=== PATIENT | male | born 1965 | race African-American/Black ===

== ENCOUNTER 2018-02-19 11:36 | Inpatient (IN) | payer OTHER ==
[2018-02-19] MEDS ORDERED: NA CHLORIDE 0.9% 1,000 ML ONE (12:14)
[2018-02-19] MEDS ORDERED: DIAZEPAM 5 MG TABLET ONE (12:14)
[2018-02-19] MEDS ORDERED: CYCLOBENZAPRINE 10 MG TAB ONE (12:14)
[2018-02-19 12:27] LABS: Hematocrit 43.2 % (39.6-49.0); MCH 29.6 pg (27.0-35.0); MCV 84.5 fL (80-100); MPV 8.3 fL (7.6-11.3); RBC Red Blood Cell Count 5.11 M/uL (4.33-5.43)
[2018-02-19] MEDS ORDERED: TETANUS & DIPHTHERIA TOX,ADULT 0.5 ML VIAL ONE (13:01)
[2018-02-19 13:12] LABS: Albumin 4.2 g/dL (3.4-5.0); Bilirubin Total 0.6 mg/dL (0.2-1.0); Potassium 3.4 mmol/L (3.5-5.1); Protein, Total 8.4 g/dL (6.4-8.2)
--- NOTE | 2018-02-19 13:32 | ER ---
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 Patient reports cramping in both legs, but states that its much worse in his right leg. Patient states that he was unable to walk because the leg kept cramping and locking up on him. Denies weakness to legs. Transition of care: patient was not received from another setting of care. Onset of symptoms was February 19, 2018 at 10:30. Risk Assessment: Do you want to hurt yourself or someone else? Patient reports no desire to harm self or others. Initial Sepsis Screen: Does the patient meet any 2 criteria? HR > 90 bpm. No. Patient's initial sepsis screen is negative. Does the patient have a suspected source of infection?. Care prior to arrival: None. 11:39 Method Of Arrival: EMS: [facility] aj1 11:39 Acuity: ANN 3 aj1 Triage Assessment: 11:44 General: Appears in no apparent distress. uncomfortable, Behavior is calm, cooperative, aj1 appropriate for age. Pain: Complains of pain in right leg and left leg. Historical: - Allergies: 11:44 No Known Allergies; aj1 - Home Meds: 11:44 amlodipine 10 mg tab 1 tab once daily [Active]; triamterene-hydrochlorothiazid 75-50 mg aj1 Oral tab 1 tab once daily [Active]; rosuvastatin 20 mg oral tab 1 tab once daily [Active]; clonidine HCl 0.1 mg Oral tab 1 tab once daily [Active]; - PMHx: 11:44 Hypertension; Hyperlipidemia; aj1 - Immunization history:: Flu vaccine is not up to date. - Social history:: Smoking status: Patient/guardian denies using tobacco, Patient uses Patient/guardian denies using alcohol, street drugs, The patient lives with family. - Ebola Screening: : Patient denies travel to an Ebola-affected area in the 21 days before illness onset. - Family history:: not pertinent. Screenin:00 Abuse screen: Denies threats or abuse. Denies injuries from another. Nutritional aj1 screening: No deficits noted. Tuberculosis screening: No symptoms or risk factors identified. Fall Risk None identified. Assessment: 12:00 General: Appears in no apparent distress. uncomfortable, Behavior is calm, cooperative, aj1 appropriate for age. Pain: Complains of pain in right leg and left leg Pain does not radiate. Pain currently is 9 out of 10 on a pain scale. Quality of pain is described as crampy, Pain began 1 hour ago. Is continuous. Neuro: Level of Consciousness is awake, alert, obeys commands, Oriented to person, place, time, situation. Cardiovascular: Denies chest pain, shortness of breath, Rhythm is sinus tachycardia. Cardiovascular: Patient's skin is warm and dry. Respiratory: Airway is patent Respiratory effort is even, unlabored, Respiratory pattern is regular, symmetrical. GI: No signs and/or symptoms were reported involving the gastrointestinal system. : No signs and/or symptoms were reported regarding the genitourinary system. EENT: No signs and/or symptoms were reported regarding the EENT system. Derm: Skin is normal. Musculoskeletal: Range of motion: intact in all extremities. Injury Description: Abrasion sustained to right leg is bleeding. 13:02 Reassessment: Patient appears in no apparent distress at this time. No changes from aj1 previously documented assessment. Patient and/or family updated on plan of care and expected duration. Pain level reassessed. Patient is alert, oriented x 3, equal unlabored respirations, skin warm/dry/pink. 14:07 Reassessment: Patient appears in no apparent distress at this time. No changes from aj1 previously documented assessment. Patient and/or family updated on plan of care and expected duration. Pain level reassessed. Patient is alert, oriented x 3, equal unlabored respirations, skin warm/dry/pink. 15:05 Reassessment: Patient and/or family updated on plan of care and expected duration. Pain aj1 level reassessed. General: Appears in no apparent distress. comfortable, Behavior is calm, cooperative, appropriate for age. Neuro: Level of Consciousness is awake, alert, obeys commands, Oriented to person, place, time, situation. Cardiovascular: Patient's skin is warm and dry. Rhythm is sinus tachycardia. Respiratory: Airway is patent Respiratory effort is even, unlabored, Respiratory pattern is regular, symmetrical. Derm: Skin is pink, warm \T\ dry. normal. 16:07 Reassessment: Patient appears in no apparent distress at this time. No changes from aj1 previously documented assessment. Patient and/or family updated on plan of care and expected duration. Pain level reassessed. Patient is alert, oriented x 3, equal unlabored respirations, skin warm/dry/pink. 17:06 Reassessment: Patient appears in no apparent distress at this time. No changes from aj1 previously documented assessment. Patient and/or family updated on plan of care and expected duration. Pain level reassessed. Patient is alert, oriented x 3, equal unlabored respirations, skin warm/dry/pink. Vital Signs: 11:44 BP 175 / 106; Pulse 108; Resp 18; Temp 98.0; Pulse Ox 96% on R/A; Weight 126.55 kg; aj1 Height 5 ft. 11 in. (180.34 cm); Pain 9/10; 12:45 BP 134 / 96; Pulse 104; Resp 20; Pulse Ox 97% on R/A; aj1 14:07 BP 162 / 105; Pulse 102; Resp 20; Pulse Ox 97% on R/A; aj1 15:30 BP 165 / 94 RA Sitting (auto/lg); Pulse 102; Resp 17; Pulse Ox 96% on R/A; jp3 16:35 BP 160 / 95; Pulse 98; Resp 18; Pulse Ox 96% ; aj1 11:44 Body Mass Index 38.91 (126.55 kg, 180.34 cm) aj1 ED Course: 11:38 Patient arrived in ED. aj1 11:41 Triage completed. aj1 11:44 Arm band placed on Patient placed in an exam room. aj1 11:48 Louise Andersen MD is Attending Physician. ma2 12:00 No provider procedures requiring assistance completed. aj1 12:05 Anne Marie Laboy, RN is Primary Nurse. aj1 12:05 Placed in gown. Call light in reach. Side rails up X 1. Side rails up X2. Warm blanket jp3 given. 12:05 abstract searcher on. Pulse ox on. NIBP on. jp3 12:22 Maintain EMS IV. Dressing intact. Good blood return noted. Site clean \T\ dry. Gauge \T\ senia 3 site: 20-gauge in Left A/C. 12:22 Initial lab(s) drawn, by me, sent to lab. jp3 12:24 CK Sent. jp3 12:24 CMP Sent. jp3 12:24 CBC w/o diff Sent. jp3 13:00 Assisted with urinal. jp3 13:05 Urine collected: clean catch specimen, clear, eren colored, Amount Voided: 250mL. jp3 13:20 Wound care: to abrasion, located on right knee, right key and left knee was cleaned jp3 with Betadine, debrided using Betadine scrub, irrigated with normal saline, dressed with Neosporin, 4X4s, covered in tegaderm, Patient tolerated well. 13:31 Maury Burgess MD is Hospitalizing Provider. la2 15:46 Urine Dipstick--Ancillary (enter results) Sent. jp3 17:03 Report given to RALEIGH Navas. aj1 17:03 Patient admitted, IV remains in place. 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 Exp: aj1 02/02/2020. Lot #: [id number]. } Route: IM; Site: left deltoid; 17:08 Follow up: Response: No adverse reaction aj1 14:29 Drug: NS 0.9% 1000 ml Route: IV; Rate: 1 bolus; Site: right antecubital; aj1 17:08 Follow up: IV Status: Completed infusion; IV Intake: 1000ml aj1 14:29 Drug: NS 0.9% 1000 ml Route: IV; Rate: 1 bolus; Site: right antecubital; aj1 17:09 Follow up: IV Status: Completed infusion aj1 Intake: 14:30 IV: 1000ml; Total: 1000ml. aj1 17:08 IV: 1000ml; Total: 2000ml. aj1 Outcome: 13:32 Decision to Hospitalize by Provider. ma2 17:25 Admitted to Tele accompanied by tech, via wheelchair, with chart. aj1 17:25 Condition: good 17:25 Discharge instructions given to patient, Instructed on the need for admit, Demonstrated understanding of instructions. 17:46 Patient left the ED. aj1 Signatures: Anne Marie Laboy RN RN aj1 Louise Andersen MD MD ma2 Aaron Light jp3 Corrections: (The following items were deleted from the chart) : 11:30 General: Appears in no apparent distress. uncomfortable, Behavior is calm, aj1 cooperative, appropriate for age, aj1 : 11:30 Pain: Complains of pain in right leg and left leg Pain does not radiate. Pain aj1 currently is 9 out of 10 on a pain scale. Quality of pain is described as crampy, Pain began 1 hour ago. Is continuous, aj1 : 11:30 Neuro: Level of Consciousness is awake, alert, obeys commands, Oriented to aj1 person, place, time, situation, aj1 : 11:30 Cardiovascular: Patient's skin is warm and dry. aj1 aj1 : 11:30 Respiratory: Airway is patent Respiratory effort is even, unlabored, Respiratory aj1 pattern is regular, symmetrical, aj1 : 11:30 Cardiovascular: Denies chest pain, shortness of breath, Rhythm is sinus aj1 tachycardia aj1 : 11:30 GI: No signs and/or symptoms were reported involving the gastrointestinal system. aj1 aj1 : 11:30 : No signs and/or symptoms were reported regarding the genitourinary system. aj1aj1 : 11:30 EENT: No signs and/or symptoms were reported regarding the EENT system. aj1 aj1 : 11:30 Derm: Skin is normal, aj1 aj1 : 11:30 Injury Description: Abrasion sustained to right leg is bleeding, aj1 aj1 : 11:30 Musculoskeletal: Range of motion: intact in all extremities, aj1 aj1
--- NOTE | 2018-02-19 13:32 | EDPHYS ---
Physician Documentation [facility] Name: Davis Solorio Age: 52 yrs Sex: Male : 1965 Arrival Date: 02/19/2018 Time: 11:38 Bed 24 Private MD: ED Physician Louise Andersen HPI: 02/19 12:29 This 52 yrs old Black Male presents to ER via EMS with complaints of Leg cramps. ma2 12:29 The patient presents with pain. Context: The problem was sustained at home. Onset: The ma2 symptoms/episode began/occurred suddenly, 1 hour(s) ago. Associated signs and symptoms: Pertinent negatives calf tenderness, nausea, numbness, tingling, warmth, weakness. Severity of symptoms: At their worst the symptoms were mild, moderate, in the emergency department the symptoms have improved. The patient has not experienced similar symptoms in the past. started on statin last week here with sudden muscle spasm of both thighs . Historical: - Allergies: 11:44 No Known Allergies; aj1 - Home Meds: 11:44 amlodipine 10 mg tab 1 tab once daily [Active]; triamterene-hydrochlorothiazid 75-50 mg aj1 Oral tab 1 tab once daily [Active]; rosuvastatin 20 mg oral tab 1 tab once daily [Active]; clonidine HCl 0.1 mg Oral tab 1 tab once daily [Active]; - PMHx: 11:44 Hypertension; Hyperlipidemia; aj1 - Immunization history:: Flu vaccine is not up to date. - Social history:: Smoking status: Patient/guardian denies using tobacco, Patient uses Patient/guardian denies using alcohol, street drugs, The patient lives with family. - Ebola Screening: : Patient denies travel to an Ebola-affected area in the 21 days before illness onset. - Family history:: not pertinent. ROS: 12:29 Constitutional: Negative for fever, chills, and weight loss, Respiratory: Negative for ma2 shortness of breath, cough, wheezing, and pleuritic chest pain, Abdomen/GI: Negative for abdominal pain, nausea, diarrhea, and constipation. 12:29 MS/extremity: Positive for pain, Negative for 12:29 All other systems are negative. Exam: 12:29 Constitutional: This is a well developed, well nourished patient who is awake, alert, ma2 and in no acute distress. Chest/axilla: Normal chest wall appearance and motion. Nontender with no deformity. No lesions are appreciated. Cardiovascular: Regular rate and rhythm with a normal S1 and S2. No gallops, murmurs, or rubs. Normal PMI, no JVD. No pulse deficits. Respiratory: Lungs have equal breath sounds bilaterally, clear to auscultation and percussion. No rales, rhonchi or wheezes noted. No increased work of breathing, no retractions or nasal flaring. Abdomen/GI: Soft, non-tender, with normal bowel sounds. No distension or tympany. No guarding or rebound. No evidence of tenderness throughout. 12:29 Musculoskeletal/extremity: ROM: intact in all extremities, Circulation is intact in all extremities. Sensation intact. Compartment Syndrome exam of affected extremity: is normal. bilateral quadriceps spasms . Vital Signs: 11:44 BP 175 / 106; Pulse 108; Resp 18; Temp 98.0; Pulse Ox 96% on R/A; Weight 126.55 kg; aj1 Height 5 ft. 11 in. (180.34 cm); Pain 9/10; 12:45 BP 134 / 96; Pulse 104; Resp 20; Pulse Ox 97% on R/A; aj1 14:07 BP 162 / 105; Pulse 102; Resp 20; Pulse Ox 97% on R/A; aj1 15:30 BP 165 / 94 RA Sitting (auto/lg); Pulse 102; Resp 17; Pulse Ox 96% on R/A; jp3 16:35 BP 160 / 95; Pulse 98; Resp 18; Pulse Ox 96% ; aj1 11:44 Body Mass Index 38.91 (126.55 kg, 180.34 cm) [facility] MDM: 11:48 Patient medically screened. ma2 12:29 Differential diagnosis: contusion, abrasion, tendonitis. ma2 13:26 Data reviewed: vital signs, nurses notes, lab test result(s), radiologic studies. ma2 Counseling: I had a detailed discussion with the patient and/or guardian regarding: the historical points, exam findings, and any diagnostic results supporting the discharge/admit diagnosis. 13:30 Response to treatment: the patient's symptoms have markedly improved after treatment. ma2 13:31 ED course: 4 L ordered . ma2 02/19 12:02 Order name: CBC w/o diff; Complete Time: 12:52 ma2 02/19 12:02 Order name: CMP; Complete Time: 13:25 ma2 02/19 12:02 Order name: CK; Complete Time: 13:25 nh2 02/19 15:36 Order name: Urine Dipstick--Ancillary (enter results) hb 02/19 17:03 Order name: Urine Dipstick-Ancillary EDVT 02/19 12:32 Order name: Dressing - Wound: plz clean w iodine and dressing with triple antibiotics ; nh2 Complete Time: 12:58 Administered Medications: 12:12 Drug: Valium 5 mg Route: PO; aj1 17:08 Follow up: Response: No adverse reaction aj1 12:12 Drug: Flexeril 10 mg Route: PO; aj1 17:08 Follow up: Response: No adverse reaction aj1 12:23 Drug: NS 0.9% 1000 ml Route: IV; Rate: 1 bolus; Site: left antecubital; aj1 14:30 Follow up: IV Status: Completed infusion; IV Intake: 1000ml aj 12:57 Drug: Tetanus-Diphtheria Toxoid Adult 0.5 ml {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 Exp: aj1 02/02/2020. Lot #: [id number]. } Route: IM; Site: left deltoid; 17:08 Follow up: Response: No adverse reaction aj1 14:29 Drug: NS 0.9% 1000 ml Route: IV; Rate: 1 bolus; Site: right antecubital; aj1 17:08 Follow up: IV Status: Completed infusion; IV Intake: 1000ml aj 14:29 Drug: NS 0.9% 1000 ml Route: IV; Rate: 1 bolus; Site: right antecubital; aj1 17:09 Follow up: IV Status: Completed infusion aj1 Disposition: 02/19/18 13:32 Hospitalization ordered by Maury Burgess for Observation. Preliminary diagnosis are Rhabdomyolysis, Acute kidney failure, unspecified. - Bed requested for Telemetry/MedSurg (observation). - Status is Observation. aj1 - Condition is Stable. - Problem is new. - Symptoms are unchanged. UTI on Admission? No Signatures: Dispatcher [employer] EDMS Anne Marie Laboy RN RN aj1 Rena Peña RN RN Louise Andersen MD MD ma2 Corrections: (The following items were deleted from the chart) 13:32 13:32 Hospitalization Ordered by Maury Burgess MD for Observation. Preliminary diagnosis ma2 is Rhabdomyolysis; Acute kidney failure, unspecified. Bed requested for Telemetry/MedSurg (observation). Status is Observation. Condition is Stable. Problem is new. Symptoms are unchanged. UTI on Admission? No. ma2 15:54 13:32 02/19/2018 13:32 Hospitalization Ordered by Maury Burgess MD for Observation. dw Preliminary diagnosis is Rhabdomyolysis; Acute kidney failure, unspecified. Bed requested for Telemetry/MedSurg (observation). Status is Observation. Condition is Stable. Problem is new. Symptoms are unchanged. UTI on Admission? No. ma2 17:46 15:54 02/19/2018 13:32 Hospitalization Ordered by Maury Burgess MD for Observation. aj1 Preliminary diagnosis is Rhabdomyolysis; Acute kidney failure, unspecified. Bed requested for Telemetry/MedSurg (observation). Status is Observation. Condition is Stable. Problem is new. Symptoms are unchanged. UTI on Admission? No. dw
[2018-02-19 17:03] LABS: Urine Blood 1+ (NEG); Urine Glucose NEGATIVE (NEG); Urine Protein NEGATIVE (NEG); Urine Specific Gravity 1.015 (1.005-1.030); Urine pH 6.5 (5.0-7.0)
--- NOTE | 2018-02-19 17:22 | P.HP ---
Certification for Inpatient Patient admitted to: Observation With expected LOS: <2 Midnights Practitioner: I am a practitioner with admitting privileges, knowledge of patient current condition, hospital course, and medical plan of care. 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 He states that he started taking statins yesterday he took 1 pill yesterday and 1 this morning. Starting this morning he started having severe cramping in his quadriceps and he lost feeling in all his muscles below his in his lower extremities. He also states that he was having severe spasms in his thighs and was having trouble standing up and he fell a couple times. He Did not hit his head. In the ER, he did receive 4 L of fluids. At the time of my examination, he was alert oriented x3 and reported symptom improvement. He denies any chest pain, shortness breath, abdominal pain, nausea, vomiting the or any other weakness. Allergies No Known Allergies Allergy (Unverified 02/19/18 15:14) Home medications list reviewed: Yes - Past Medical/Surgical History -: Hypertension Past Surgical History: Reviewed- Non-Contributory Review of Systems General: Unremarkable Eyes: Unremarkable ENT: Unremarkable Respiratory: Unremarkable Cardiovascular: Unremarkable Gastrointestinal: Unremarkable Genitourinary: Unremarkable Musculoskeletal: As per HPI Integumentary: Unremarkable Neurological: Unremarkable Physical Examination - Physical Exam General: Alert, In no apparent distress HEENT: Atraumatic, PERRLA, Mucous membr. moist/pink, EOMI, Sclerae nonicteric Neck: Supple, 2+ carotid pulse no bruit, No LAD, Without JVD or thyroid abnormality Respiratory: Clear to auscultation bilaterally, Normal air movement Cardiovascular: Regular rate/rhythm, Normal S1 S2 Gastrointestinal: Normal bowel sounds, No tenderness Musculoskeletal: Tenderness (On quadriceps. Sensory normal) Integumentary: No rashes Neurological: Normal gait, Normal speech, Normal strength at 5/5 x4 extr, Normal tone, Normal affect Lymphatics: No axilla or inguinal lymphadenopathy - Studies Laboratory Data (last 24 hrs) 02/19/18 12:15: Sodium 139, Potassium 3.4 L, BUN 15, Creatinine 1.80 H, Glucose 94, Total Bilirubin 0.6, AST 41 H, ALT 58, Alkaline Phosphatase 85 02/19/18 12:15: WBC 10.0, Hgb 15.1, Hct 43.2, Plt Count 272 Assessment and Plan - Problems (Diagnosis) (1) Rhabdomyolysis due to statin therapy Current Visit: Yes Status: Acute Plan: Patient recently started on statin, had severe quadriceps pain and muscle spasms. In the ER, creatinine elevated to 1.8 and CPK elevated to 1700. It's he did receive 4 L of IV fluids in the ER. Will admit patient for observation, give maintenance IV fluids of normal saline at 100 cc/hour. Trend creatinine and CPK tomorrow morning. (2) Hypertension Current Visit: Yes Status: Acute Plan: Stable, restart home medications. Discharge Plan: Home Plan to discharge in: 24 Hours - Advance Directives Does patient have a Living Will: No Does patient have a Durable POA for Healthcare: No
[2018-02-19] MEDS: ENOXAPARIN 40 MG/0.4 ML SQ SCH (18:08)
[2018-02-19] MEDS: NA CHLORIDE 0.9% 1,000 ML IV SCH (18:08)
[2018-02-19] MEDS ORDERED: POTASSIUM 25 MEQ EFFERV TAB PO ONE (19:00)
[2018-02-19] MEDS: HYDROCODONE/APAP 10/325 TAB PO PRN (20:58)
[2018-02-19] MEDS ORDERED: INFLUENZA VACCINE (for 3y+) 0.5 ML DOSE IMVAC ONE (21:00)
[2018-02-20] MEDS: HYDROCODONE/APAP 10/325 TAB PO PRN ×3 (01:26→16:47)
[2018-02-20] MEDS: METOPROLOL TARTRATE 5 MG/5 ML INJ IV PRN (01:26)
[2018-02-20] MEDS: NA CHLORIDE 0.9% 1,000 ML IV SCH ×2 (01:31→13:23)
[2018-02-20 06:06] LABS: Absolute Lymphocytes (CBC) 2.7 K/uL (0.7-4.9); Absolute Monocytes 0.7 K/uL (0.1-1.3); Absolute Neutrophil 4.9 K/uL (1.8-8.0); Basophils % 0.7 % (0-1.3); Hematocrit 40.3 % (39.6-49.0); Lymphocytes % 31.7 % (15.3-44.8); MCH 29.7 pg (27.0-35.0); MCV 86.5 fL (80-100); MPV 8.6 fL (7.6-11.3); Monocytes % 8.8 % (3.3-12.3); RBC Red Blood Cell Count 4.65 M/uL (4.33-5.43)
[2018-02-20 06:56] LABS: Albumin 3.4 g/dL (3.4-5.0); Magnesium 2.3 mg/dL (1.8-2.4); Phosphorus 3.6 mg/dL (2.5-4.9); Potassium 3.5 mmol/L (3.5-5.1); Protein, Total 7.3 g/dL (6.4-8.2)
[2018-02-20] MEDS: ENOXAPARIN 40 MG/0.4 ML SQ SCH (08:06)
[2018-02-20 08:19] LABS: CKMB Creatine Kinase MB 12.6 ng/mL (0.3-3.6)
[2018-02-20] MEDS ORDERED: POTASSIUM CL SA 10 MEQ TAB PO ONE (09:00)
[2018-02-20] MEDS: cloNIDine HCl 0.1 MG TAB PO SCH (10:42)
[2018-02-20 14:46] VITALS: BMI 39.0
--- NOTE | 2018-02-20 16:59 | P.PN ---
Subjective Date of Service: 02/20/18 Chief Complaint: Rhabdomyolysis Patient seen and examined at bedside. no family at bedside. Chart reviewed and case discussed with nursing staff. Still unable to walk, complaining of burning pain on bilateral thighs. States that his right thigh up to his knee is swollen. Review of Systems 10-point ROS is otherwise unremarkable Physical Examination - Vital Signs Temperature: 97.8 F Blood Pressure: 160/82 Pulse: 83 Respirations: 16 Pulse Ox (%): 97 - Physical Exam General: Alert, In no apparent distress HEENT: Atraumatic, PERRLA, EOMI Neck: Supple, JVD not distended Respiratory: Clear to auscultation bilaterally, Normal air movement Cardiovascular: Regular rate/rhythm, Normal S1 S2 Gastrointestinal: Normal bowel sounds, No tenderness Musculoskeletal: Swelling (Bilateral lower extremity swelling, right worse than left.), Tenderness Integumentary: No rashes Neurological: Normal speech, Normal tone, Normal affect Lymphatics: No axilla or inguinal lymphadenopathy - Studies Medications List Reviewed: Yes Assessment And Plan - Current Problems (Diagnosis) (1) Rhabdomyolysis due to statin therapy Onset Date: 02/20/18 Current Visit: Yes Status: Acute Plan: Patient recently started on statin, had severe quadriceps pain and muscle spasms. In the ER, creatinine elevated to 1.8 and CPK elevated to 1700, which has worsened to 10,285. His kidney function has improved though. He continues to receive IV fluid, maintenance dose. We will trend his CPK and CK MB tomorrow. [place] for pain control Physical therapy order placed (2) Hypertension Onset Date: 02/20/18 Current Visit: Yes Status: Acute Plan: Stable, restart home medications. (3) Swelling of lower extremity Current Visit: Yes Status: Acute Plan: Patient with bilateral lower extremity swelling with cough. Right lower than worse. 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 Evaluate for DVT with venous Doppler. Discharge Plan: Home Plan to discharge in: 48 Hours
--- NOTE | 2018-02-20 19:31 | RAD REPORT ---
EXAM DESCRIPTION: USExtrem Venous W Compress Bil02/20/2018 7:21 pm CLINICAL HISTORY: Bilateral leg swelling COMPARISON: none FINDINGS: The common femoral, superficial femoral, popliteal and posterior tibial veins bilaterally are compressible and demonstrate augmentation. Doppler demonstrates good flow. IMPRESSION: No evidence of deep venous thrombosis involving either lower extremity.
[2018-02-20] MEDS ORDERED: ROSUVASTATIN 10 MG TAB PO SCH (21:00)
[2018-02-21] MEDS: METOPROLOL TARTRATE 5 MG/5 ML INJ IV PRN (00:38)
[2018-02-21] MEDS: HYDROCODONE/APAP 10/325 TAB PO PRN ×3 (00:38→18:01)
[2018-02-21] MEDS: NA CHLORIDE 0.9% 1,000 ML IV SCH ×3 (00:40→20:07)
[2018-02-21 04:39] LABS: CKMB Creatine Kinase MB 6.1 ng/mL (0.3-3.6); Potassium 3.7 mmol/L (3.5-5.1)
[2018-02-21] MEDS ORDERED: POTASSIUM 25 MEQ EFFERV TAB PO ONE (06:00)
[2018-02-21] MEDS: ENOXAPARIN 40 MG/0.4 ML SQ SCH (08:28)
[2018-02-21] MEDS ORDERED: AMLODIPINE 10 MG TAB PO SCH (09:00)
[2018-02-21] MEDS ORDERED: MAXZIDE (HCTZ 25/TRIAMTERENE 37.5MG) TAB PO SCH (09:00)
[2018-02-21] MEDS: cloNIDine HCl 0.1 MG TAB PO SCH (09:48)
--- NOTE | 2018-02-21 17:44 | P.PN ---
Subjective Date of Service: 02/21/18 Chief Complaint: Rhabdomyolysis Subjective: Ambulating, Improving, Working w/ PT, Doing well Review of Systems 10-point ROS is otherwise unremarkable Physical Examination - Vital Signs Temperature: 97.2 F Blood Pressure: 166/98 Pulse: 90 Respirations: 18 Pulse Ox (%): 99 - Physical Exam General: Alert, In no apparent distress HEENT: Atraumatic, PERRLA, EOMI Neck: Supple, JVD not distended Respiratory: Clear to auscultation bilaterally, Normal air movement Cardiovascular: Regular rate/rhythm, Normal S1 S2 Gastrointestinal: Normal bowel sounds, No tenderness Musculoskeletal: No tenderness Integumentary: No rashes Neurological: Normal speech, Normal tone, Normal affect Lymphatics: No axilla or inguinal lymphadenopathy - Studies Medications List Reviewed: Yes Assessment And Plan - Current Problems (Diagnosis) (1) Rhabdomyolysis due to statin therapy Onset Date: 02/20/18 Current Visit: Yes Status: Acute Plan: Rhabdomyolysis due to statin therapy that was started recently -hold statin at this time -IV fluids at 125 mL/hour -CK trending down will continue to monitor closely (2) TIFFANIE (acute kidney injury) Current Visit: Yes Status: Acute Plan: Acute kidney injury most likely secondary to rhabdomyolysis versus dehydration -IV fluids at this time -avoid nephrotoxic agents (3) Swelling of lower extremity Current Visit: Yes Status: Acute Plan: Dc done lymphopenia at this time. Most likely dependent edema. Patient encouraged to ambulate and while resting elevate legs (4) Hypertension Onset Date: 02/20/18 Current Visit: Yes Status: Chronic Plan: Will continue to monitor closely. Amlodipine has been discontinued. Will continue with clonidine at this time Qualifiers: Hypertension type: essential hypertension Qualified Code(s): I10 - Essential (primary) hypertension - Plan Currently awaiting clinical improvement. Anticipate discharge in 24-48 hr Discharge Plan: Home Plan to discharge in: 48 Hours - Code Status/Comfort Care Code Status Assessed: Yes Critical Care: No
[2018-02-22] MEDS: NA CHLORIDE 0.9% 1,000 ML IV SCH ×4 (03:41→21:09)
[2018-02-22 04:49] LABS: Potassium 3.7 mmol/L (3.5-5.1)
[2018-02-22] MEDS ORDERED: POTASSIUM 25 MEQ EFFERV TAB PO ONE (04:59)
[2018-02-22] MEDS: HYDROCODONE/APAP 10/325 TAB PO PRN ×3 (06:30→21:09)
[2018-02-22] MEDS: ENOXAPARIN 40 MG/0.4 ML SQ SCH (08:16)
[2018-02-22] MEDS: cloNIDine HCl 0.1 MG TAB PO SCH (08:16)
--- NOTE | 2018-02-22 15:59 | P.PN ---
Subjective Date of Service: 02/22/18 Primary Care Provider: Jordan Mccray Chief Complaint: Rhabdomyolysis Subjective: Improving Physical Examination - Vital Signs Temperature: 98.9 F Blood Pressure: 155/62 Pulse: 87 Respirations: 20 Pulse Ox (%): 99 - Physical Exam General: Alert, In no apparent distress, Oriented x3, Cooperative HEENT: Atraumatic, Mucous membr. moist/pink Neck: Supple Respiratory: Clear to auscultation bilaterally, Normal air movement Cardiovascular: Normal pulses, Regular rate/rhythm Gastrointestinal: Normal bowel sounds, Soft and benign, Non-distended, No tenderness, No masses, No rebound, No guarding Musculoskeletal: No erythema, No tenderness, No warmth Integumentary: No erythema, No warmth, No cyanosis, Tenderness/swelling ( Swelling to the right lower extremity improved) Neurological: Normal speech, Normal strength at 5/5 x4 extr, Normal tone, Normal affect - Studies Medications List Reviewed: Yes Assessment & Plan Discharge Plan: Home Plan to discharge in: 24 Hours Physician Review Additional Text: Impression: Acute rhabdomyolysis likely secondary to medication-statin medication Acute renal injury secondary to rhabdomyolysis Hypertension Edema to the lower extremities likely related to rhabdomyolysis Obesity, BMI 39 Plan: Acute rhabdomyolysis likely secondary to medication-statin medication: Patient doing better. CPK improved. Renal function appears to be back to baseline. Will continue to hold statin medication. This will need to be discontinued at discharge. Anticipate discharge tomorrow. Patient will travel back to [place] to follow up with his PCP. 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 Acute renal injury secondary to rhabdomyolysis: Much improved. Back to baseline. Continue IV fluids. Recheck tomorrow. Hypertension: Medication adjusted. Will discontinue Norvasc due to edema. Discontinue Dyazide due to rhabdomyolysis. Adjustments include discontinuation of clonidine. Will change to metoprolol 12.5 mg 1 pill twice daily. Will order echocardiogram to further evaluate. Edema to the lower extremities likely related to rhabdomyolysis: Venous Doppler shows no DVT. Will continue monitor closely. Will check echocardiogram to evaluate for underlying congestive heart failure Obesity, BMI 39: Will continue to address lifestyle modification education. Time Spent Managing Pts Care (In Minutes): 55
[2018-02-22] MEDS: METOPROLOL TAR 25 MG TAB PO SCH (18:19)
[2018-02-22] MEDS: FAMOTIDINE 20 MG TAB PO SCH (21:09)
[2018-02-22 21:18] VITALS: O2SAT 97
[2018-02-23] MEDS: NA CHLORIDE 0.9% 1,000 ML IV SCH ×2 (02:00→06:17)
[2018-02-23 05:38] LABS: Magnesium 2.3 mg/dL (1.8-2.4); Potassium 3.8 mmol/L (3.5-5.1)
[2018-02-23] MEDS: HYDROCODONE/APAP 10/325 TAB PO PRN (05:57)
[2018-02-23] MEDS: METOPROLOL TAR 25 MG TAB PO SCH (05:57)
[2018-02-23] MEDS ORDERED: POTASSIUM 25 MEQ EFFERV TAB PO ONE (06:30)
[2018-02-23 09:24] LABS: Thyroid Stimulating Hormone 1.82 uIU/mL (0.360-3.740); Uric Acid 6.2 mg/dL (3.5-7.2)
--- NOTE | 2018-02-23 09:54 | P.DS ---
Admission Date: 02/21/18 Discharge Date: 02/23/18 Primary Care Provider: Inna Disposition: ROUTINE DISCHARGE Discharge Condition: GOOD Reason for Admission: Rhabdomyolysis Consultations: None Procedures: Venous Doppler lower extremity: No DVT identified Medical problem list: Acute rhabdomyolysis likely secondary to medication-statin medication Acute renal injury secondary to rhabdomyolysis Hypertension Edema to the lower extremities likely related to rhabdomyolysis Obesity, BMI 39 Obstructive sleep apnea on CPAP Brief History of Present Illness: 52-year-old male presented emergency room with cramping to the lower extremities bilateral. Patient had recently started statin medication for hyperlipidemia. Patient fell was brought in to the emergency room. 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 Patient found to have acute renal insufficiency with rhabdomyolysis likely related to medication. Patient was admitted for treatment. Hospital Course: Patient found to have acute renal injury with acute rhabdomyolysis likely secondary to medication-Crestor. Patient was admitted and given IV fluids. Statin medication was discontinued. Venous Doppler of the lower extremity showed no DVT. Patient improved. At discharge Crestor has been discontinued. Recommendation to increase oral intake. Recommendation to increase activity. Recommend to ambulate every hr when driving long distances. Patient will travel back to [place] were he lives and follow up with his PCP on Monday. Recommendation to recheck lab-BMP and CPK at that time to monitor his progress. Will recommend no future use of statin medication. Recommend to continue with diet and lifestyle modification. A limited supply of tramadol 50 mg 1 pill 3 times a day as needed for pain will be provided. Patient has hypertension. Medications adjusted during his stay. At discharge, Norvasc, clonidine and Dyazide have been discontinued. Patient responding well to beta-manuela therapy. At discharge patient will continue with metoprolol 25 mg 1 pill twice daily. Recommendation is to maintain blood pressures less 150/ 80. Further adjustment can be done by his PCP. Edema to the lower extremities likely related to acute renal insufficiency and acute rhabdomyolysis. Venous Doppler shows no DVT. This has improved. This can be further monitored and addressed by his PCP. Patient with obstructive sleep apnea. Patient will continue with CPAP at night. Patient with obesity, BMI 39. Lifestyle modification education is recommended. Vital Signs/Physical Exam: Temp Pulse Resp BP Pulse Ox 99 F 73 18 153/74 H 93 02/23/18 08:00 02/23/18 08:00 02/23/18 08:00 02/23/18 08:00 02/23/18 08:00 General: Alert, In no apparent distress, Oriented x3, Cooperative HEENT: Atraumatic, Mucous membr. moist/pink Neck: Supple Respiratory: Clear to auscultation bilaterally, Normal air movement Cardiovascular: Normal pulses, Regular rate/rhythm Gastrointestinal: Normal bowel sounds, Soft and benign, Non-distended, No tenderness, No masses, No rebound, No guarding Musculoskeletal: No erythema, No tenderness, No warmth Integumentary: No erythema, No warmth, No cyanosis, Tenderness/swelling (Mild edema to the lower extremities but improved.) Neurological: Normal speech, Normal strength at 5/5 x4 extr, Normal tone, Normal affect Laboratory Data at Discharge: WBC 8.5 K/uL (4.3-10.9) D 02/20/18 05:08 Hgb 13.8 g/dL (13.6-17.9) 02/20/18 05:08 Hct 40.3 % (39.6-49.0) 02/20/18 05:08 Plt Count 262 K/uL (152-406) 02/20/18 05:08 Sodium 142 mmol/L (136-145) 02/23/18 04:37 Potassium 3.8 mmol/L (3.5-5.1) 02/23/18 04:37 BUN 12 mg/dL (7-18) 02/23/18 04:37 Creatinine 1.10 mg/dL (0.55-1.3) 02/23/18 04:37 Glucose 86 mg/dL (74-106) 02/23/18 04:37 Uric Acid 6.2 mg/dL (3.5-7.2) 02/23/18 04:37 Phosphorus 3.6 mg/dL (2.5-4.9) 02/20/18 05:08 Magnesium 2.3 mg/dL (1.8-2.4) 02/23/18 04:37 Total Bilirubin 1.0 mg/dL (0.2-1.0) 02/20/18 05:08 AST 133 U/L (15-37) H 02/20/18 05:08 ALT 66 U/L (12-78) 02/20/18 05:08 Alkaline Phosphatase 70 U/L (45-117) 02/20/18 05:08 Home Medications: Metoprolol Tartrate [Lopressor*] 25 mg PO BID 6AM 6PM #60 tab 02/23/18 Tramadol HCl [Ultram] 50 mg PO TID PRN #15 tablet 02/23/18 New Medications: Metoprolol Tartrate [Lopressor*] 25 mg PO BID 6AM 6PM #60 tab Tramadol HCl [Ultram] 50 mg PO TID PRN #15 tablet PRN Reason: Pain Patient Discharge Instructions: 1. Patient will need a follow up with his PCP in 1 week to follow up this hospitalization. 2. Patient found to have acute renal injury with acute rhabdomyolysis likely secondary to medication-Crestor. Patient was admitted and given IV fluids. Statin medication was discontinued. Venous Doppler of the lower extremity showed no DVT. Patient improved. At discharge Crestor has been discontinued. Recommendation to increase oral intake. Recommendation to increase activity. Recommend to ambulate every hr when driving long distances. Patient will travel back to [place] were he lives and follow up with his PCP on Monday. Recommendation to recheck lab-BMP and CPK at that time to monitor his progress. Will recommend no future use of statin medication. Recommend to continue with diet and lifestyle modification. A limited supply of tramadol 50 mg 1 pill 3 times a day as needed for pain will be provided. 3. Patient has hypertension. Medications adjusted during his stay. At discharge, Norvasc, clonidine and Dyazide have been discontinued. Patient responding well to beta-manuela therapy. At discharge patient will continue with metoprolol 25 mg 1 pill twice daily. Recommendation is to maintain blood pressures less 150/80. Further adjustment can be done by his PCP. 4. Edema to the lower extremities likely related to acute renal insufficiency and acute rhabdomyolysis. Venous Doppler shows no DVT. This has improved. This can be further monitored and addressed by his PCP. 5. Patient with obstructive sleep apnea. Patient will continue with CPAP at night. 6. Patient with obesity, BMI 39. Lifestyle modification education is recommended. Diet: AHA Activity: Fall precautions Time spent managing pt's care (in minutes): 55
[2018-02-23] MEDS: FAMOTIDINE 20 MG TAB PO SCH (10:04)
[2018-02-23] MEDS: ENOXAPARIN 40 MG/0.4 ML SQ SCH (10:04)
[2018-02-23 12:14] VITALS: BP 162/82; TEMP 98.6
[2018-02-23] MEDS ORDERED: METOPROLOL TAR 25 MG TAB PO SCH (18:00)
--- NOTE | 2018-02-26 08:08 | ECHO ---
HEIGHT: 5 ft 11 in WEIGHT: 280 lb 0 oz DATE OF STUDY: 02/23/[address]: Jayjay Felix DO 2-DIMENSIONAL: YES M.MODE: YES DOPPLER: YES COLOR FLOW: YES TDS: NO PORTABLE: NO DEFINITY: NO BUBBLE STUDY: NO DIAGNOSIS: HYPERTENSION, EDEMA LOWER EXTREMITIES CARDIAC HISTORY: CATHERIZATION: NO SURGERY: NO PROSTHETIC VALVE: NO PACEMAKER: NO MEASUREMENTS (cm) DIASTOLIC (NORMALS) SYSTOLIC (NORMALS) IVSd 1.1 (0.6-1.2) LA Diam 3.9 (1.9-4.0) LVEF 41% LVIDd 4.5 (3.5-5.7) LVIDs 3.6 (2.0-3.5) %FS 20% LVPWd 1.2 (0.6-1.2) Ao Diam 2.9 (2.0-3.7) 2 DIMENSIONAL ASSESSMENT: RIGHT ATRIUM: NORMAL LEFT ATRIUM: NORMAL RIGHT VENTRICLE: NORMAL LEFT VENTRICLE: NORMAL TRICUSPID VALVE: NORMAL MITRAL VALVE: NORMAL PULMONIC VALVE: NORMAL AORTIC VALVE: SCLEROSIS PERICARDIAL EFFUSION: NONE AORTIC ROOT: NORMAL LEFT VENTRICULAR WALL MOTION: NORMAL. DOPPLER/COLOR FLOW: MILD TRICUSPID REGURGITATION. COMMENTS: MILD TRICUSPID REGURGITATION. AORTIC SCLEROSIS. NORMAL LEFT VENTRICULAR SIZE AND FUNCTION. NO EFFUSION. TECHNOLOGIST: ELIAS TRAORE
== END 2018-02-23 16:00 | disposition home or self-care (01) | DRG 683 ==
LOC: ER 11:36 → ERHOLD 13:35 → 4TH 16:56 → OBSVTOIN 02-21 15:37
PROVIDERS: ADMIT Family Medicine; ATTEND Family Medicine
DX: N17.9 Acute kidney failure, unspecified (principal); M62.82 Rhabdomyolysis; T46.6X5A Adverse effect of antihyperlipidemic and antiarteriosclerotic drugs, initial encounter; Y92.89 Other specified places as the place of occurrence of the external cause; I10 Essential (primary) hypertension; R60.9 Edema, unspecified; E66.9 Obesity, unspecified; Z68.39 Body mass index [BMI] 39.0-39.9, adult; G47.33 Obstructive sleep apnea (adult) (pediatric)
CPT/HCPCS: 36415; 80048; 80053; 81003; 82550; 82553; 83735; 84100; 84439; 84443; 84550; 85025; 85027; 90714; 93306; 93970; 96360; 96361; 97163; 99285; G0378; J1650; J7030